=== PATIENT | female | born 1985 | race Caucasian/White ===

== ENCOUNTER 2020-03-30 11:50 | Emergency (ER) | payer BC ==
[~2020-03-30] VITALS: Ht 154.9 cm; Wt 58.6 kg
[~2020-03-30 11:50] MED LIST: BCP TD; CEPHALEXIN500 M1 PO; CITRUCEL WI2 GM/Dose PO; CYMBALTA 30MG30 MG PO; DEPO-PROVER150 MG/M1 IM; FLEXERIL 1010 MG/TAB PO; IMODIUM 2MG CAPS2 MG PO; ISOMETH/DICHLOR1 CAP PO; MIDRIN CAPSULE1 CAP PO; MIRAPEX; PRILOSEC 20MG20 MG PO; PROZAC 20MG20 MG PO; SKELAXIN 800MG800 MG PO; TREXIMET; ZOFRAN 4MG T4 MG/TAB PO; ZOFRAN ODT4 MG PO
[2020-03-30 12:48] LABS: BASO # 0.1 (0.0-0.2); BASO % 0.6 % (0.0-2.0); EOS # 0.1 (0.0-0.7); EOS % 1.2 % (0-4.0); GRAN % 74.2 % (42.2-75.2); HEMATOCRIT 38.8 % (37.0-47.0); HEMOGLOBIN 12.7 g/dl (12.5-16.0); LYMPH # 1.9 (1.2-3.4); LYMPH % 17.4 % (20.0-51.0); MEAN CELL VOLUME 92 fl (80.0-100.0); MEAN CORPUSCULAR HEMOGLOBIN 30 pg (27.0-31.0); MEAN CORPUSCULAR HGB CONC 33 g/dl (33.0-37.0); MEAN PLATELET VOLUME 9.8 fl (7.4-10.4); MONO # 0.7 (0.1-0.6); MONO % 6.2 % (1.7-9.3); PLATELET COUNT 343 K/mm3 (130-400); RED BLOOD COUNT 4.23 M/mm3 (4.10-5.30); REDCELL DISTRIBUTION WIDTH-CV 13.3 % (11.5-14.5)
[2020-03-30 13:00] LABS: COLLECTION METHOD CLEAN CATCH
[2020-03-30 13:06] LABS: MUCOUS Present /lpf; PH 5 (5-8); SQUAMOUS EPITHELIAL 0-2 /hpf; URINE APPEARANCE Clear; URINE BACTERIA None Seen /hpf; URINE BILIRUBIN Negative (NEGATIVE); URINE BLOOD 3+ (NEGATIVE); URINE COLOR Yellow; URINE GLUCOSE Negative (NEGATIVE); URINE KETONE Negative (NEGATIVE); URINE LEUKOCYTE ESTERASE Negative (NEGATIVE); URINE NITRATE Negative (NEGATIVE); URINE PROTEIN(semi-quant) Negative (NEGATIVE); URINE RBC 20-50 /hpf; URINE UROBILINOGEN Negative (NEGATIVE)
[2020-03-30 16:07] VITALS: BP 129/86; PULSE 90; TEMP 98.2
== END 2020-03-30 16:07 | disposition home or self-care (01) ==
LOC: COL.ER 11:50
PROVIDERS: Physician Assistant
DX: O20.0 Threatened abortion (principal); Z3A.01 Less than 8 weeks gestation of pregnancy; Z88.6 Allergy status to analgesic agent; Z88.8 Allergy status to other drugs, medicaments and biological substances
CPT/HCPCS: J1170; J2270; J2405; J7030